=== PATIENT | male | born 1975 | race Caucasian/White ===

== ENCOUNTER 2018-01-07 21:48 | Emergency (ER) | payer SELFPAY ==
[~2018-01-07] VITALS: Ht 167.6 cm; Wt 69.8 kg
[2018-01-07 21:55] VITALS: Ht 167.6 cm; Wt 69.8 kg
[2018-01-07 22:34] VITALS: BP 111/69
== END 2018-01-07 22:34 | disposition home or self-care (01) ==
LOC: ED 21:48
DX: G56.31 Lesion of radial nerve, right upper limb (principal)